=== PATIENT | male | born 1970 | race Caucasian/White ===

== ENCOUNTER → 2022-11-22 | Day surgery (SDC) | payer BC ==
[~2022-11-22] MED LIST: Flumazenil 0.1 MG/ML 10 ML MDV ONE; Ketamine 200 MG/20 ML MDV ONE; Midazolam 1 MG/ML 2 ML SDV ONE; Propofol 200 MG/20 ML SDV ONE; fentaNYL 50 MCG/ML SDV ONE
[2022-11-22] MEDS: Lactated Ringers 1,000 ML IV SCH (10:35)
== END ==
LOC: CC.SDS 10:14
PROVIDERS: ATTEND Family Medicine
DX: Z12.11 Encounter for screening for malignant neoplasm of colon (principal); D12.5 Benign neoplasm of sigmoid colon; D12.7 Benign neoplasm of rectosigmoid junction; K57.30 Diverticulosis of large intestine without perforation or abscess without bleeding; K64.9 Unspecified hemorrhoids; J45.909 Unspecified asthma, uncomplicated; I10 Essential (primary) hypertension; M54.16 Radiculopathy, lumbar region; G47.33 Obstructive sleep apnea (adult) (pediatric); Z79.51 Long term (current) use of inhaled steroids; Z79.899 Other long term (current) drug therapy
CPT/HCPCS: 00812; J2250; J2704; J3010; J3490; J7120